=== PATIENT | female | born 1955 | race Hispanic/Latino ===

== ENCOUNTER 2018-12-31 22:15 | Emergency (ER) | payer BC ==
[2018-12-31] MEDS ORDERED: LIDOCAINE 5% TOPICAL PATCH TP ONE (22:42)
[2018-12-31] MEDS ORDERED: ORPHENADRINE CITRATE 30 MG/ML ML ONE (22:42)
[2018-12-31] MEDS ORDERED: KETOROLAC TROMETHAMINE 60 MG/2 ML VIAL ONE (22:42)
== END 2018-12-31 23:19 | disposition home or self-care (01) ==
LOC: EDH 22:15
DX: S39.012A Strain of muscle, fascia and tendon of lower back, initial encounter (principal); Z88.1 Allergy status to other antibiotic agents; Z88.2 Allergy status to sulfonamides; W17.89XA Other fall from one level to another, initial encounter; Y93.89 Activity, other specified; Y92.89 Other specified places as the place of occurrence of the external cause; Y99.8 Other external cause status
CPT/HCPCS: 72070; 96372 ×2; 99284; J1885; J2360

== ENCOUNTER → 2019-08-14 | Outpatient (CLI) | payer BC ==
[~2019-08-14] VITALS: Ht 160 cm; Wt 85.7 kg
[~2019-08-14] MED LIST: REGADENOSON 0.4 MG/5 ML PF SYG IVP SCH
== END | disposition home or self-care (01) ==
LOC: SHCH 08:12
PROVIDERS: ATTEND Internal Medicine Cardiovascular Disease
DX: I35.8 Other nonrheumatic aortic valve disorders (principal)
CPT/HCPCS: 78452; 93017; 96374; A9500 ×2; J2785

== ENCOUNTER 2020-04-12 20:36 | Emergency (ER) | payer BC ==
[2020-04-12] MEDS ORDERED: SODIUM CHLORIDE 0.9% 1000ML 1,000 ML IV ONE (20:37)
[2020-04-12 21:09] LABS: BASOPHILS % (AUTO) 0.8 % (0.0-5.0); EOSINOPHILS % (AUTO) 2.2 % (0.0-8.0); HEMATOCRIT 39.4 % (36-48); LYMPHOCYTES % (AUTO) 33.2 % (21.0-51.0); MEAN CORPUSCULAR HEMOGLOBIN 30.7 pg (27.0-33.0); MEAN CORPUSCULAR VOLUME 90.4 fL (79-99); MONOCYTES % (AUTO) 11.9 % (3.0-13.0); NEUTROPHILS % (AUTO) 51.6 % (40.0-77.0); PLATELET COUNT (AUTO) 285 K/uL (130-400); RED BLOOD CELL COUNT(AUTO) 4.36 MIL/uL (4.00-5.50); RED CELL DISTRIBUTION WIDTH 12.5 % (11.0-15.5); WHITE BLOOD COUNT (AUTO) 7.6 K/uL (4.8-10.8)
[2020-04-12 21:24] LABS: CREATININE 1.4 mg/dL (0.5-1.5); POTASSIUM 3.5 mmol/L (3.5-5.1)
[2020-04-12 21:25] LABS: INR 0.91 (0.85-1.15); PARTIAL THROMBOPLASTIN TIME 36.5 SEC (26.3-35.5); PROTHROMBIN TIME 9.9 SEC (9.6-11.6)
[2020-04-12 21:28] LABS: ALBUMIN 3.9 g/dL (3.5-5.0); BILIRUBIN,TOTAL 0.3 mg/dL (0.2-1.0); TOTAL PROTEIN, SERUM 7.3 g/dL (6.0-8.3)
[2020-04-12] MEDS ORDERED: DiphenhydrAMINE HCL 50 MG/ML VIAL ONE (21:47)
[2020-04-12] MEDS ORDERED: KETOROLAC TROMETHAMINE 30MG/ML ONE (21:48)
[2020-04-12] MEDS ORDERED: DEXAMETHASONE SOD PHOSPHATE 4 MG/ML 1ML VIAL ONE (21:48)
== END 2020-04-12 22:48 | disposition home or self-care (01) ==
LOC: EDH 20:36
DX: R51 Headache (principal); Z88.1 Allergy status to other antibiotic agents; Z88.2 Allergy status to sulfonamides
CPT/HCPCS: 36415; 70450; 80053; 84484; 85025; 85610; 85730; 93005; 96361; 96374; 96375; 99285; J1100; J1200; J1885; J7030

== ENCOUNTER 2020-12-09 08:30 | Emergency (ER) | payer BC ==
[2020-12-09] MEDS ORDERED: ACETAMINOPHEN-CODEINE 300/30MG TAB ONE (08:53)
[2020-12-09] MEDS ORDERED: KETOROLAC TROMETHAMINE 30MG/ML ONE (08:53)
== END 2020-12-09 11:10 | disposition home or self-care (01) ==
LOC: EDH 08:30
DX: S30.0XXA Contusion of lower back and pelvis, initial encounter (principal); M54.32 Sciatica, left side; Z88.2 Allergy status to sulfonamides; Z88.1 Allergy status to other antibiotic agents; Z90.49 Acquired absence of other specified parts of digestive tract; W18.39XA Other fall on same level, initial encounter; Y93.89 Activity, other specified; Y92.89 Other specified places as the place of occurrence of the external cause; Y99.8 Other external cause status
CPT/HCPCS: 72100; 73552; 93971; 96372; 99284; J1885

== ENCOUNTER → 2023-05-24 | Outpatient (CLI) | payer OTHER, MEDICARE ==
[2023-05-24 16:46] LABS: CREATININE 0.7 mg/dL (0.5-1.5); POTASSIUM 3.9 mmol/L (3.5-5.1)
== END | disposition home or self-care (01) ==
LOC: LAB 14:10
PROVIDERS: ATTEND Student in an Organized Health Care Education/Training Program
DX: I10 Essential (primary) hypertension (principal)
CPT/HCPCS: 36415; 80048

== ENCOUNTER → 2023-06-10 | Outpatient (CLI) | payer BC, OTHER ==
[~2023-06-10] MED LIST changes: +IOHEXOL 350 MG/ML 100ML INFUS..BTL IV ONE; -REGADENOSON 0.4 MG/5 ML PF SYG IVP SCH
== END | disposition home or self-care (01) ==
LOC: RAH 07:30
PROVIDERS: ATTEND Student in an Organized Health Care Education/Training Program
DX: R06.00 Dyspnea, unspecified (principal); M47.815 Spondylosis without myelopathy or radiculopathy, thoracolumbar region
CPT/HCPCS: 75574; Q9967

== ENCOUNTER → 2023-07-01 | Outpatient (CLI) | payer OTHER, MEDICARE | END | disposition home or self-care (01) | LOC: SHCH 10:08 | PROVIDERS: ATTEND Student in an Organized Health Care Education/Training Program | DX: I51.7 Cardiomegaly (principal); R06.00 Dyspnea, unspecified | CPT/HCPCS: 93306 ==